=== PATIENT | male | born 1965 | race Caucasian/White ===

== ENCOUNTER 2022-02-10 06:35 | Emergency (ER) | payer BC, SELFPAY ==
--- NOTE | ~2022-02-10 | XR_ITS ---
EXAMINATION: XR knee RT 3V DATE: 02/10/2022 07:08 INDICATION: Right knee injury and pain. TECHNIQUE: 3 views of right knee were obtained. COMPARISON: None. FINDINGS: Bone alignment is normal. No fracture. There is severe osteoarthritis of medial compartment and mild osteoarthritis of lateral and patellofemoral compartments. No knee joint effusion. IMPRESSION: 1. Severe right knee osteoarthritis. Reviewed, dictated and finalized at location A.
[2022-02-10 06:46] VITALS: BP 172/117; PULSE 97; RESP 17; TEMP 36.6; O2SAT 97
[2022-02-10 06:50] VITALS: BP 145/118
--- NOTE | 2022-02-10 07:10 | PC.NURSE ---
Assumed care of pt. at this time. Report from ERLINDA Bonds
[2022-02-10 07:48] VITALS: BP 145/88; PULSE 88; RESP 19; O2SAT 99
--- NOTE | 2022-02-10 08:24 | ED.LOWEXIN ---
HPI - Extremity Injury (Lower) General Chief Complaint: Extremity Injury, Lower Stated Complaint: Right Knee Pain after Fall Yesterday Time Seen by Provider: 02/10/22 06:59 History of Present Illness HPI Narrative: Patient is a 56-year-old male who presents ER with right knee pain. Has history of severe osteoarthritis of the right knee. He sees an orthopedic surgeon in [place]. He reports that yesterday he fell directly onto his right knee. He has had increased pain since then with limitation in his ability to flex knee. He can only get to 90 degrees flexion. He reports that he has no new numbness or tingling. And not strike his head. 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 Related Data Allergies Allergy/AdvReac Type Severity Reaction Status Date / Time oxycodone Allergy Itching Verified 02/10/22 06:51 Review of Systems Constitutional: Constitutional: Denies chills and Denies fever(s) Musculoskeletal: Musculoskeletal: Reports arthralgias and Denies joint swelling Neurologic: Reports system reviewed and no additional complaints, except as documented, Denies focal weakness and Denies numbness PMFSH Past Medical History Medical History (Updated 02/10/22 @ 08:35 by Jesus Sainz MD) Hypertension Hypothyroidism Osteoarthritis, knee Surgical History Surgical History (Updated 02/10/22 @ 08:35 by Jesus Sainz MD) No history of previous surgery Social History Social History (Updated 02/10/22 @ 08:35 by Jesus Sainz MD) Smoking status: Never smoker Exam Narrative: GENERAL: Well-appearing, well-nourished, and in no acute distress. HEAD: Normocephalic, atraumatic. HEART: Regular rate and rhythm. Normal peripheral pulses. EXTREMITIES: Right lower extremity with tenderness of the anterior joint line medial more than lateral with bruising at the medial aspect. Can only flex to 90 degrees for has significant pain. No pain over the patella. Neurovascular intact. SKIN: Warm, dry, no rash. NEURO: Alert and oriented x3. PSYCH: Normal mood and affect. Course Course Emergency Course: Informed of results. Discussed treatment plan. Patient will follow up with his orthopedic surgeon. Vital Signs Vital signs: Vital Signs Temperature 97.9 F 02/10/22 06:46 Pulse Rate 97 02/10/22 06:46 Respiratory Rate 17 02/10/22 06:46 Blood Pressure 172/117 H 02/10/22 06:46 Pulse Oximetry 97 02/10/22 06:46 Oxygen Delivery Room Air 02/10/22 06:46 Temperature 97.9 F 02/10/22 06:46 Pulse Rate 88 02/10/22 07:48 Respiratory Rate 19 02/10/22 07:48 Blood Pressure 145/88 H 02/10/22 07:48 Pulse Oximetry 99 02/10/22 07:48 Oxygen Delivery Room Air 02/10/22 06:46 MDM - Extremity Injury (Lower) Imaging Data Radiologist's impression: ITS Impressions Knee X-Ray 02/10/22 07:11 IMPRESSION: 1. Severe right knee osteoarthritis. Discharge Plan Discharge Clinical Impression: Arthritis of knee, right Patient Disposition: Home, Self-Care Condition: Stable Instructions: Arthritis (ED) Additional Instructions: Return the ER if you have a red/hot knee, you have fever over 100.4 ?F, you have chest pain or shortness of breath, you have additional concerns. Prescriptions: New naproxen 375 mg tablet 375 mg PO BID Qty: 14 0RF tramadol 50 mg tablet 50 mg PO Q6H PRN (Reason: pain) Qty: 14 0RF Follow-up/Referrals: PHYSICIAN NOT ON STAFF,NONSTAFF [Primary Care Provider] - 1 Week Stand Alone Forms: Work/School Release IP
== END 2022-02-10 08:50 | disposition home or self-care (01) ==
PROVIDERS: Emergency Provider Emergency Medicine
DX: M17.11 Unilateral primary osteoarthritis, right knee (principal); I10 Essential (primary) hypertension; E03.9 Hypothyroidism, unspecified
CPT/HCPCS: 73562; 99283

== ENCOUNTER 2022-07-18 09:24 | Emergency (ER) | payer BC, SELFPAY ==
--- NOTE | ~2022-07-18 | XR_ITS ---
EXAMINATION: XR abdomen/kub 1V DATE: 07/18/2022 11:49 INDICATION: Left kidney stone. TECHNIQUE: A supine view of the abdomen on 2 radiographs was obtained. COMPARISON: CT abdomen and pelvis 07/18/2022 FINDINGS: There are no dilated loops of bowel. There is contrast in the renal collecting system. Ther e is mild left hydronephrosis and hydroureter. IMPRESSION: 1. Mild left hydronephrosis and hydroureter. Reviewed, dictated and finalized at location A. IX INSPECTOR
--- NOTE | ~2022-07-18 | CT_ITS ---
EXAMINATION: CT abdomen pelvis w con INDICATION: Left flank pain TECHNIQUE: Computed tomographic images of the abdomen and pelvis were obtained after the administrati on of 100 cc of Omnipaque 350 intravenous contrast. The dose-length product (DLP) was 1555.48 mGy-cm. Automated exposure control and iterative reconstruction technique were employed. COMPARISON: None available FINDINGS: Minimal dependent atelectasis is present in the lung bases. The heart size is normal. Calci fied coronary artery atherosclerosis is noted. Surgical changes of the stomach likely reflect gastric bypass. The liver, spleen, pancreas, gallbladder, and adrenal glands are normal. There is a 2 mm sto ne in the urinary bladder at the left ureterovesicular junction. The left kidney is unremarkable. The re is a 6 mm nonobstructing stone of the right kidney. There is mild periportal lymphadenopathy. Ther e is no free intraperitoneal gas or evidence of bowel obstruction. The appendix is normal. There is a right inguinal hernia containing fat. There is moderate lumbar spondylosis. There are bridging osteo phytes at multiple levels in the visualized thoracic spine, consistent with diffuse idiopathic skelet al hyperostosis (DISH). IMPRESSION: 1. 2 mm stone at the left ureterovesicular junction. 2. Mild periportal lymphadenopathy, likely reactive. 3. Nonobstructing right nephrolithiasis. Reviewed, dictated and finalized at location L. ALT RAKER
[2022-07-18 09:26] VITALS: BP 167/109; PULSE 66; RESP 20; TEMP 36.9; O2SAT 100
--- NOTE | 2022-07-18 09:37 | ED.FALL ---
HPI - Fall General Chief Complaint: Fall Stated Complaint: flank pain s/p fall yesterday Time Seen by Provider: 07/18/22 09:30 History of Present Illness HPI Narrative: Patient is a 56-year-old male with history of gastric sleeve, hypertension, here for evaluation of left flank pain after a fall yesterday. Patient states that he was ambulating in his usual state of health when he tripped over a rug and his cats. He fell, striking his left side against the ground. He denies head injury or loss of consciousness. Since the fall, he has noticed increasing pain to his left flank. He attempted Aleve, an old prescription for muscle relaxant and his 's Xanax yesterday which did not alleviate the pain but did make him sleep all day. States that the pain worsened today which prompted his ED eval. He does not take any blood thinner medicines. No trauma to the chest. No dizziness, lightheadedness, chest pain, shortness of breath, nausea or vomiting. He has been ambulatory without any hip pain. Related Data Allergies Allergy/AdvReac Type Severity Reaction Status Date / Time oxycodone Allergy Itching Verified 07/18/22 09:30 Review of Systems Review of Systems: Gen.: Denies fevers or chills Eyes: Denies eye pain or visual change ENT: Denies congestion Respiratory: Denies shortness of breath or cough CV: Denies chest pain or palpitations GI: Denies abdominal pain nausea, emesis or diarrhea denies burning, urgency, frequency or hematuria Musculoskeletal: Reports left flank pain Neuro: Denies numbness, tingling, weakness or focal weakness Skin: Denies rash Except as documented, all other systems reviewed and negative PMFSH Past Medical History Medical History Hypertension Hypothyroidism Osteoarthritis, knee Surgical History Surgical History No history of previous surgery Social History Social History (Updated 02/10/22 @ 08:35 by Jesus Sainz MD) Smoking status: Never smoker Exam Narrative: APPEARANCE: Obese. Well appearing, no pain in distress, well-nourished. Head: Normocephalic and atraumatic. EYES: PERRLA/EOMI, conjunctivae clear NOSE: No nasal drainage EARS: External ear normal in appearance THROAT: Oropharynx is clear. Mucous membranes are moist. NECK: Supple. No adenopathy, no masses. RESPIRATORY: Airway patent, respirations nonlabored. Clear to auscultation bilaterally, no rales, rhonchi, wheezing. CARDIOVASCULAR: Regular rate and rhythm without murmurs, rubs, or gallops. ABDOMINAL: There is an area of pale ecchymosis overlying the left flank that is tender to palpation. He does have some midline tenderness to palpation of L4/L5. Normoactive bowel sounds. Soft, nontender, nondistended. No rebound tenderness or guarding. MUSCULOSKELETAL: Extremities are warm and well-perfused. Moves all extremities well. No edema. NEURO: Ambulatory with a normal gait. Normal speech. No focal neurologic deficits. SKIN: There is a pale area of ecchymosis overlying his left flank. No rashes to flank. PSYCHIATRIC: Normal affect/mood. Course Vital Signs Vital signs: Vital Signs Temperature 98.4 F 07/18/22 09:26 Pulse Rate 66 07/18/22 09:26 Respiratory Rate 20 07/18/22 09:26 Blood Pressure 167/109 H 07/18/22 09:26 Pulse Oximetry 100 07/18/22 09:26 Oxygen Delivery Room Air 07/18/22 09:26 Temperature 98.4 F 07/18/22 09:26 Pulse Rate 84 07/18/22 12:02 Respiratory Rate 18 07/18/22 12:02 Blood Pressure 139/99 H 07/18/22 12:02 Pulse Oximetry 99 07/18/22 12:02 Oxygen Delivery Room Air 07/18/22 09:26 MDM - Fall MDM Narrative Medical decision making narrative: 56-year-old male here for evaluation of left flank pain after a fall yesterday. Initial concern was over retroperitoneal hematoma given slight bruising over the left flank but noted to have evide
[2022-07-18 10:05] LABS: Basophils Absolute Auto 0.1 K/mm3 (0.0-0.1); Basophils Percent Auto 0.9 % (0.2-1.2); Eosinophils Absolute Auto 0.2 K/mm3 (0-0.3); Eosinophils Percent Auto 1.9 % (0-4.4); Hematocrit 46.2 % (42.0-52.0); Hemoglobin 13.7 g/dL (14.0-18.0); Immature Granulocyte Absolute 0.03 K/mm3 (0.00-0.031); Immature Granulocyte Percent A 0.3 % (0-0.5); Lymphocytes Absolute Auto 1.61 K/mm3 (0.9-3.2); Lymphocytes Percent Auto 17.8 % (18.3-44.2); Mean Corpuscular HGB Conc 29.7 g/dl (32-36); Mean Corpuscular Hemoglobin 21.3 pg (26-34); Mean Platelet Volume 10.4 fl (7.4-10.4); Monocytes Absolute Auto 0.7 K/mm3 (0.1-0.6); Monocytes Percent Auto 7.5 % (2.6-8.5); Neutrophils Absolute Auto 6.5 K/mm3 (1.3-6.7); Neutrophils Percent Auto 71.6 % (45.5-73.1); Platelet Count Result 295 k/mm3 (150-375); Red Blood Count 6.42 M/mm3 (4.6-6.20); Red Cell Distribution Width 18.4 % (11.5-14.5)
[2022-07-18 10:17] LABS: INR 1.1; Prothrombin Time 13.3 Seconds (11.1-14.7)
[2022-07-18 10:18] LABS: Partial Thromboplastin Time 31.6 SECONDS (22.3-36.8)
[2022-07-18 10:20] LABS: Alanine Aminotransferase 33 U/L (6-50); Albumin Level 4.1 g/dL (3.5-5.1); Alkaline Phosphatase 99 U/L (38-126); Anion Gap 9 mmol/L (8-16); Aspartate Amino Transferase 29 U/L (17-59); Bilirubin,Total 0.7 mg/dL (0.2-1.3); Blood Urea Nitrogen 15 mg/dL (9-20); Calcium 8.2 mg/dL (8.4-10.2); Carbon Dioxide 26 mmol/L (22-30); Chloride 102 mmol/L (98-107); Estimated CRCL calculation 121 ml/min; Estimated Glomerular Filt Rate > 60; Glucose 152 mg/dL (65-110); Potassium 3.7 mmol/L (3.4-5.0); Sodium 137 mmol/L (137-145)
[2022-07-18 10:24] LABS: Ovalocytes 1+ (NORMAL); Platelet Estimate Adequate (Adequate); Schistocytes None Seen (NORMAL)
[2022-07-18] MEDS: ONDANSETRON INJ 4 MG/2 ML VIAL IV PUSH (10:44)
--- NOTE | 2022-07-18 11:19 | PC.NURSE ---
Report recieved from Faye COFFEY at this time including history and physical and plan of care
[2022-07-18 11:20] LABS: Appearance Urine Clear (Clear); Bilirubin Urine Negative (Negative); Blood Urine Negative (Negative); Color Urine Yellow (Yellow); Glucose Urine UA Negative (Negative); Ketones Urine Negative (Negative); Leukocyte Esterase Ur Negative LEU/UL (Negative); Nitrate Urine Negative (Negative); Protein Urine Negative (Negative); Specific Grav Ur 1.015 (1.001-1.035); Urobilinogen Urine 0.2 mg/dL (<2.0); pH Urine 7.5 (5.0-9.0)
[2022-07-18 11:21] LABS: Add Urine Microscopic? NO
[2022-07-18 12:02] VITALS: BP 139/99; PULSE 84; RESP 18; O2SAT 99
== END 2022-07-18 13:50 | disposition home or self-care (01) ==
PROVIDERS: Emergency Provider Physician Assistant
DX: N20.2 Calculus of kidney with calculus of ureter (principal); I10 Essential (primary) hypertension; E03.9 Hypothyroidism, unspecified; M17.9 Osteoarthritis of knee, unspecified; Z98.84 Bariatric surgery status
CPT/HCPCS: 36415; 74018; 74177; 80053; 81003; 85025; 85610; 85730; 96365; 96375; 99284; J0131; J2405; Q9967

== ENCOUNTER 2022-10-09 02:24 | Emergency (ER) | payer BC, SELFPAY ==
[2022-10-09] VITALS (11 sets, daily range): BP systolic 138–146; BP diastolic 94–99; PULSE 60–72; RESP 11–24; TEMP 36.6; O2SAT 96–100
--- NOTE | ~2022-10-09 | CT_ITS ---
EXAMINATION: CT abdomen pelvis wo con DATE: 10/09/2022 03:08 INDICATION: Right flank pain. TECHNIQUE: Computed tomography (CT) of the abdomen and pelvis was performed without intravenous contr ast. Automated exposure control and iterative reconstruction technique were employed. The dose-length product was 1051.84 mGy-cm. COMPARISON: CT abdomen and pelvis 07/18/2022 FINDINGS: The visualized portions of the lung bases demonstrate minimal atelectasis on the left. A ca lcified right lung nodules consistent with old granulomatous disease. No pleural effusion. The heart size is normal. There are coronary artery calcifications. No pericardial effusion. There are changes of gastric sleeve procedure. The liver, gallbladder, spleen, pancreas, adrenal glands, and left kidne y are normal. There is mild right hydronephrosis. There is a 6 mm stone in proximal right ureter. The re is a right inguinal hernia containing fat. There is diverticulosis of the colon without evidence o f diverticulitis. The appendix is normal. There are no dilated loops of bowel. There is mild periport al lymphadenopathy, likely reactive. There is no free intraperitoneal fluid. There is severe lumbar s pondylosis. IMPRESSION: 1. 6 mm stone in proximal right ureter with mild right hydronephrosis. 2. Right inguinal hernia containing fat. 3. Mild periportal lymphadenopathy, likely reactive. Reviewed, dictated and finalized at location A.
[2022-10-09 02:59] LABS: Basophils Absolute Auto 0.1 K/mm3 (0.0-0.1); Basophils Percent Auto 0.5 % (0.2-1.2); Eosinophils Absolute Auto 0.1 K/mm3 (0-0.3); Hematocrit 48.9 % (42.0-52.0); Hemoglobin 15.1 g/dL (14.0-18.0); Immature Granulocyte Absolute 0.03 K/mm3 (0.00-0.031); Immature Granulocyte Percent A 0.3 % (0-0.5); Lymphocytes Absolute Auto 1.65 K/mm3 (0.9-3.2); Lymphocytes Percent Auto 15.1 % (18.3-44.2); Mean Corpuscular HGB Conc 30.9 g/dl (32-36); Mean Corpuscular Hemoglobin 23.2 pg (26-34); Mean Corpuscular Volume 75.2 fl (80-100); Mean Platelet Volume 10.4 fl (7.4-10.4); Monocytes Absolute Auto 0.9 K/mm3 (0.1-0.6); Monocytes Percent Auto 8.2 % (2.6-8.5); Neutrophils Absolute Auto 8.2 K/mm3 (1.3-6.7); Neutrophils Percent Auto 74.9 % (45.5-73.1); Platelet Count Result 283 k/mm3 (150-375); Red Cell Distribution Width 19.1 % (11.5-14.5)
[2022-10-09 03:45] LABS: Alanine Aminotransferase 41 U/L (6-50); Albumin Level 4.1 g/dL (3.5-5.1); Alkaline Phosphatase 66 U/L (38-126); Anion Gap 7 mmol/L (8-16); Aspartate Amino Transferase 46 U/L (17-59); Blood Urea Nitrogen 15 mg/dL (9-20); Calcium 8.2 mg/dL (8.4-10.2); Carbon Dioxide 28 mmol/L (22-30); Chloride 100 mmol/L (98-107); Estimated CRCL calculation 100 ml/min; Estimated Glomerular Filt Rate > 60; Glucose 108 mg/dL (65-110); Potassium 4.8 mmol/L (3.4-5.0); Sodium 135 mmol/L (137-145)
[2022-10-09 04:22] LABS: Appearance Urine Cloudy (Clear); Bacteria Urine 4+ /hpf; Bilirubin Urine Negative (Negative); Blood Urine 1+ (Negative); Color Urine Yellow (Yellow); Glucose Urine UA Negative (Negative); Ketones Urine 1+ mg/dL (Negative); Leukocyte Esterase Ur 1+ LEU/UL (Negative); Nitrate Urine Negative (Negative); Non Pathogenic Casts 0-2; Protein Urine Negative (Negative); RBC Urine 21-50 /hpf (0-2); Squamous Epithelial Cell Urine Occasional /hpf (Few); pH Urine 6.5 (5.0-9.0)
--- NOTE | 2022-10-09 04:23 | ED.GENADULT ---
HPI - General Adult General Chief complaint: Urogenital-Male Stated complaint: right flank pain, hx of kidney stones Time Seen by Provider: 10/09/22 02:44 History of Present Illness HPI narrative: this is a 57-year-old gentleman with history of kidney stones presenting ED with the chief complaint of right flank pain. Pain started yesterday around 2:00 a.m.. Sharp pain in his right flank. Is nonradiating, 5 out 10 intensity and comes and goes. It feels exactly like when he had kidney stones 2 months ago. There are no exacerbating alleviating factors. He has had some nausea but no vomiting. No fever chills or urinary symptoms. Related Data Allergies Allergy/AdvReac Type Severity Reaction Status Date / Time oxycodone Allergy Itching Verified 10/09/22 02:36 [facility] Past Medical History Medical History Hypertension Hypothyroidism Osteoarthritis, knee Surgical History Surgical History No history of previous surgery Social History Social History (Updated 02/10/22 @ 08:35 by Jesus Sainz MD) Smoking status: Never smoker Exam Narrative: APPEARANCE: No apparent distress. Head: atraumatic. EYES: EOMI, NOSE: Atraumatic NECK: Trachea midline RESPIRATORY: No increased rate of breathing CARDIOVASCULAR: RRR, ABDOMINAL: Soft nontender no guarding or rebound. No CVA tenderness MUSCULOSKELETAl: No obvious deformities NEURO: Alert. Moving 4/4 extremities SKIN:: Warm, dry. Normal color PSYCHIATRIC: Normal affect Course Vital Signs Vital signs: Vital Signs Temperature 97.8 F 10/09/22 02:27 Pulse Rate 71 10/09/22 02:27 Respiratory Rate 16 10/09/22 02:27 Blood Pressure 146/99 H 10/09/22 02:27 Pulse Oximetry 100 10/09/22 02:27 Oxygen Delivery Room Air 10/09/22 02:27 Temperature 97.8 F 10/09/22 02:27 Pulse Rate 68 10/09/22 03:45 Respiratory Rate 24 H 10/09/22 03:45 Blood Pressure 138/94 H 10/09/22 02:48 Pulse Oximetry 96 10/09/22 03:45 Oxygen Delivery Room Air 04/24/23 02:[address] [facility] Narrative Medical decision making narrative: -Presentation: 57-year-old history of kidney stones presenting with right flank pain. 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 Metabolic panel within normal limits. CT abdomen pelvis showed a 6 mm stone in the UPJ and mild right hydronephrosis. UA showed 11-20 white blood cells, +4 bacteria and +1 leuk esterase. Patient is afebrile. White blood cell count is 11.0. Patient will be given a dose of ceftriaxone and a prescription for Omnicef. Dx tests considered but not ordered: -Procedures: -Interventions: 1 g ceftriaxone -Shared decision making / Disposition: patient will be discharged with symptomatic treatment and antibiotics given Urology follow-up. -RX Motrin, Tylenol, [place], Flomax, Zofran, Omnicef Vital Signs Vital Signs: Vital Signs Temperature 97.8 F 10/09/22 02:27 Pulse Rate 71 10/09/22 02:27 Respiratory Rate 16 10/09/22 02:27 Blood Pressure 146/99 H 10/09/22 02:27 Pulse Oximetry 100 10/09/22 02:27 Oxygen Delivery Room Air 10/09/22 02:27 Temperature 97.8 F 10/09/22 02:27 Pulse Rate 68 10/09/22 03:45 Respiratory Rate 24 H 10/09/22 03:45 Blood Pressure 138/94 H 10/09/22 02:48 Pulse Oximetry 96 10/09/22 03:45 Oxygen Delivery Room Air 10/09/22 02:27 Lab Data 10/09/22 02:47 10/09/22 03:30 Labs: Lab Resu
[2022-10-09 04:36] LABS: Add Urine Microscopic? YES
== END 2022-10-09 05:47 | disposition home or self-care (01) ==
PROVIDERS: Emergency Provider Emergency Medicine
DX: N20.0 Calculus of kidney (principal); N39.0 Urinary tract infection, site not specified; I10 Essential (primary) hypertension; E03.9 Hypothyroidism, unspecified; M17.10 Unilateral primary osteoarthritis, unspecified knee
CPT/HCPCS: 36415; 74176; 80053; 81001; 85025; 87086; 96365; 99284; J0696

== ENCOUNTER 2022-10-11 14:09 | Outpatient (CLI) | payer BC, SELFPAY ==
--- NOTE | ~2022-10-11 | XR_ITS ---
EXAM: XR abdomen/kub 1V DATE: 10/11/2022 14:23 HISTORY: RIGHT URETERAL STONE . COMPARISON: 07/18/2022; CT abdomen and pelvis 10/09/2022. FINDINGS: Surgical suture line in the left upper quadrant. Clear lung bases. Normal bowel gas pattern . No organomegaly. 7 mm calcification projecting over the right L4 transverse process. Pelvic phlebol iths. Regional bones and soft tissues normal for age. IMPRESSION: 7 mm stone in the proximal right ureter. Reviewed, dictated and finalized at location K.
== END 2022-10-11 14:10 | disposition home or self-care (01) ==
LOC: ANHIMG 14:15
DX: N20.1 Calculus of ureter (principal)
CPT/HCPCS: 74018

== ENCOUNTER 2022-10-13 00:41 | Day surgery (SDC) | payer BC, SELFPAY ==
[2022-10-12 12:15] VITALS: BMI 39.1
--- NOTE | 2022-10-12 12:23 | PC.NURSE ---
Addendum entered by Ronel Mcginnis RN 10/12/22 12:27: PT ALSO TO TAKE ANTIBIOTIC MORNING OF SURGERY Original Note: Report to the Outpatient Waiting Room, entrance under the green pavilion located off [facility], at time 0830 on date 10/13/22. Planned Procedure Time: 1030. Time changes happen often and if your time is changed the preop area will call you the afternoon before. - You and your visitor will be asked to self-screen and do not enter if you have any COVID symptoms. - A mask is optional within the hospital at this time. Patients may have clear liquids (water, carbonated beverages, clear teas, apple juice) until 3 hours prior to surgery with a maximum of 20 ounces. - No food from midnight until time of surgery Take the following medications with a SIP of water the morning of surgery: LEVOTHYROXINE, AMLODIPINE, PAIN PILL IF NEEDED DO NOT STOP ANY OF YOUR OTHER PRESCRIPTION MEDICATIONS PRIOR TO SURGERY?EXCEPT THE FOLLOWING Medications to discontinue per physician: VITAMINS, SUPPLEMENTS, NSAIDS Date to take last dose: NO MORE UNTIL AFTER SURGERY Please no make-up, nail burkinan, hairspray, perfume, deodorant, or body powder the day of surgery. No jewelry (including any body piercings) or valuables the day of surgery, leave them at home. Please take a shower or bath the night before, or the morning of, surgery with an antibacterial soap. Wear comfortable, loose fitting clothing. - Jewelry must be removed prior to entering the operating room. Rings and piercings that are not removed may be cut off. - The hospital will not accept responsibility for valuables. - Please leave all valuables, including medications, at home the day of surgery. If you are going home after surgery, a licensed p d driver must drive you home. - NO public transportation without another adult if you receive anesthesia. - We recommend that an adult stay with you for 24 hours following discharge. - We also recommend that you do not drive, make important decision, drink alcoholic beverages, or take any drugs that were not prescribed by your health care provider for at least 24 hours after your discharge time. Follow any additional instructions given to you from your surgeon. If you or anyone in your household have experienced Covid symptoms in the past week, please notify your surgeon or the nurse liaison at the phone number below for possible testing. Telephone instructions given to PT - SIMBA CROOKS and asked if any additional questions and then verbalized understanding. Patient advised to call surgeon office or pre surgery nurse liaison [phone] if any additional questions.
[2022-10-13] VITALS (8 sets, daily range): BP systolic 130–139; BP diastolic 79–90; PULSE 64–80; RESP 14–27; TEMP 36.2–36.4; O2SAT 91–99
--- NOTE | ~2022-10-13 | XR_ITS ---
Supine and upright views of the abdomen Clinical history: Lithotripsy COMPARISON: 10/11/2022 Findings: Bowel gas pattern is nonspecific. No evidence for obstruction or free air. Possible migrati on of right-sided ureteral stone to the mid right ureter. Osseous structures are intact. Impression: Suspected migration of right-sided ureteral stone into the mid right ureter, superimposed upon the ri ght L4 transverse process. Reviewed, dictated and finalized at location M. Impression: Suspected migration of right-sided ureteral stone into the mid right ureter, ho perimposed upon the right L4 transverse process.
--- NOTE | 2022-10-13 06:24 | ECG_ITS ---
Measurements Intervals [place] Rate: 86 P: 39 WA: 112 QRS: -18 QRSD: 86 T: 51 QT: 381 QTc: 458 Interpretive Statements SINUS RHYTHM WITH SHORT WA INTERVAL WITH FREQUENT PACS NONSPECIFIC T-WAVE ABNORMALITY ABNORMAL RHYTHM ECG NO PREVIOUS ECG AVAILABLE FOR COMPARISON Electronically Signed On 10-13-2022 11:04:44 CDT by Moreno Abel M.D.
--- NOTE | 2022-10-13 09:05 | WPDHPUPDATE1 ---
History and Physical Update Update Date/Time: 10/13/22 09:05 History and Physical has been reviewed, including an updated exam of the patient. There are NO changes in the patient's condition. Risks, benefits, and alternatives have been discussed and questions answered. Patient agrees to proceed with procedure. Proceed with ESWL of right ureteral calculus possible cysto, ureteroscopy with laser, stone extraction, stent placement
[2022-10-13] MEDS: LACTATED RINGERS 1,000 ML 30 ML IV CONT ×2 (09:45→11:32)
[2022-10-13] MEDS: ONDANSETRON INJ 4 MG/2 ML VIAL IV PUSH (09:58)
--- NOTE | 2022-10-13 10:01 | WPDANESEPPF ---
Anes - Initial Pre Proc Eval Procedure: Operation Date: 10/13/22 10:30 Proposed Procedures p Right Extracorporeal Shock Wave Lithotripsy, - Kalen Quintana MD s Possible Cystoscopy, Right Ureteroscopy, Right Retrograde Pyelogram, Right Stone Extraction, Right Stent Placement, Possible Holmium Laser Procedure - Kalen Quintana MD Date/Time: 10/13/22 10:01 Surgeon: Kalen Quintana MD Pre Op Diagnosis: right ureteral stones Patient Data Age: 57 Gender: M Height: 1.8 m Weight: 121.4 kg Last Vital Signs Temp 36.2 C L 10/13/22 08:58 Pulse 80 10/13/22 08:58 Resp 20 10/13/22 08:58 BP 133/81 10/13/22 08:58 Pulse Ox 99 10/13/22 08:58 O2 Del Method Room Air 10/13/22 08:58 Allergies Allergy/AdvReac Type Severity Reaction Status Date / Time No Known Allergies Allergy Verified 10/12/22 12:14 Home Medications Medication Instructions Recorded Confirmed Type tramadol 50 mg tablet 50 mg PO Q6H PRN pain #14 tabs 02/10/22 10/13/22 Rx cefdinir 300 mg capsule 300 mg PO Q12H #14 caps 10/09/22 10/13/22 Rx hydrocodone 7.5 mg-acetaminophen 1 tablet PO Q6H PRN pain #14 tabs 10/09/22 10/13/22 Rx 325 mg tablet ibuprofen 800 mg tablet 800 mg PO TID PRN pain 7 days #21 10/09/22 10/13/22 Rx tabs ondansetron 4 mg disintegrating 4 mg PO Q8H PRN nausea and 10/09/22 10/13/22 Rx tablet vomiting #30 tabs tamsulosin 0.4 mg capsule (Flomax) 0.4 mg PO HS #14 caps 10/09/22 10/13/22 Rx acetaminophen 500 mg tablet 1,000 mg PO TID PRN Pain 10/12/22 10/13/22 History amlodipine 10 mg tablet 10 mg PO DAILY 10/12/22 10/13/22 History baclofen 10 mg tablet 10 mg PO DAILY PRN Pain 10/12/22 10/13/22 History ferrous sulfate 325 mg (65 mg 325 mg PO DAILY 10/12/22 10/13/22 History iron) tablet (Iron (ferrous sulfate)) hydrochlorothiazide 12.5 mg tablet 12.5 mg PO DAILY 10/12/22 10/13/22 History levothyroxine 125 mcg tablet 125 mcg PO DAILY 10/12/22 10/13/22 History meloxicam 15 mg tablet 15 mg PO DAILY PRN Pain 10/12/22 10/13/22 History multivitamin 1 tablet PO DAILY 10/12/22 10/13/22 History pantoprazole 40 mg tablet,delayed 40 mg PO QAM 10/12/22 10/13/22 History release semaglutide 1 mg/dose (2 mg/1.5 1 mg subcut WEEKLY 10/12/22 10/13/22 History mL) subcutaneous pen injector (Ozempic) Laboratory Tests 10/13/22 09:48 PT Pending INR Pending APTT Pending Sodium Pending Potassium Pending Chloride Pending Carbon Dioxide Pending Anion Gap Pending BUN Pending Creatinine Pending Estim Creat Clear Calc Pending Estimated GFR Pending Glucose Pending Calcium Pending Patient hx anesthesia problems: post op nausea/vomiting Family hx anesthesia problems: none Results Review: All pre-operative results and documents have been reviewed as part of the pre-operative evaluation. [facility] Past Medical History Medical History Hypertension Hypothyroidism Osteoarthritis, knee Surgical History Surgical History No history of previous surgery Social History Social History Smoking status: Never smoker Alcohol intake: never Substance use: never Substance use type: does not use Living arrangements: with family Spiritual care concerns: No Anes - Eval Final PreProcedure Day of Procedure 10/13/22 10:01 Patient weight: obese Heart: regular rate and rhythm Lungs: clear to auscultation Airway: Mallampati scale class II Neurological: alert and oriented Last oral intake: >/= 8 hours Emergent: no Anesthetic plan: proceed Anesthesia type and monitoring: general LMA and standard monitoring Results Review: All pre-operative results and documents have been reviewed as part of the pre-operative evaluation. Informed Cons
[2022-10-13 10:04] LABS: Anion Gap 6 mmol/L (8-16); Blood Urea Nitrogen 21 mg/dL (9-20); Calcium 8.5 mg/dL (8.4-10.2); Carbon Dioxide 32 mmol/L (22-30); Chloride 98 mmol/L (98-107); Estimated CRCL calculation 71 ml/min; Estimated Glomerular Filt Rate 53; Glucose 98 mg/dL (65-110); Potassium 4.1 mmol/L (3.4-5.0); Sodium 136 mmol/L (137-145)
[2022-10-13] MEDS: SCOPOLAMINE 1.5 MG PATCH TRANSDERM (10:06)
[2022-10-13 10:13] LABS: Prothrombin Time 13.2 Seconds (11.1-14.7)
[2022-10-13 10:14] LABS: Partial Thromboplastin Time 31.6 SECONDS (22.3-36.8)
[2022-10-13] MEDS: ceFAZolin 2 GM/D5W 50 ML 2 GM/50 ML BAG IVPB (10:32)
[2022-10-13] MEDS: ceFAZolin SODIUM 1 GM VIAL IV PUSH (10:32)
--- NOTE | 2022-10-13 11:21 | P.OP_ITS ---
Procedure Note - Detailed Date of Procedure 10/13/22 Pre-op Diagnosis right ureteral stones Post-op Diagnosis Same Procedure Performed Lithotripsy of right ureteral calculus Surgeon Kalen Quintana MD Anesthesia General Description of Procedure Patient was taken to the operative suite correctly identified. Once anesthesia was obtained the stone was localized in both planes. Three thousand shocks were given the stone. This somewhat difficult to tell the amount of fragmentation possibly due to edema around the stone. Nonetheless he tolerated procedure well without complications taken recovery stable condition. He will follow-up in 7- 10 days with KUB. This completes dictation on Jt Rowley. please send a copy to my office Drains No Packing No Pathology None sent Complications No immediate complications Condition Stable Disposition PACU
--- NOTE | 2022-10-13 11:59 | SUR.PHASEI ---
1156: Simple mask removed.
[2022-10-13] MEDS: diphenhydrAMINE HCl INJ 50 MG/ML VIAL 25 MG IV PUSH (12:39)
--- NOTE | 2022-10-13 13:53 | SUR.PHASEII ---
DR REYES CLARIFIED FOR PATIENT TO FINISH CEFDINIR AND NOT TO TAKE THE BACTRIM THAT WAS PRESCRIBED. PATIENT NOTIFIED.
== END 2022-10-13 13:55 | disposition home or self-care (01) ==
PROVIDERS: Anesthesiology; Visit Provider Urology
PROC: (CPT 50590; principal; 2022-10-13 10:30)
DX: N20.1 Calculus of ureter (principal); I10 Essential (primary) hypertension; E03.9 Hypothyroidism, unspecified; E66.9 Obesity, unspecified; Z68.37 Body mass index [BMI] 37.0-37.9, adult
CPT/HCPCS: 50590; 36415; 74018; 80048; 85610; 85730; 93005; A9270; J0131; J0330; J0690; J1100; J1200; J2250; J2405; J2704; J3010; J7120

== ENCOUNTER 2022-10-20 11:27 | Outpatient (CLI) | payer BC, SELFPAY ==
--- NOTE | ~2022-10-20 | XR_ITS ---
EXAMINATION: XR abdomen/kub 1V DATE: 10/20/2022 11:45 INDICATION: Right ureteral stone. TECHNIQUE: A supine view of the abdomen on 2 radiographs was obtained. COMPARISON: CT abdomen and pelvis 10/20/2022 FINDINGS: There are no dilated loops of bowel. There are phleboliths in the pelvis. There is a 9 x 6 mm stone in right ureter at L4-L5. IMPRESSION: 1. 9 x 6 mm stone in right ureter at L4-L5. Reviewed, dictated and finalized at location A.
--- NOTE | ~2022-10-20 | CT_ITS ---
Non-contrast CT scan of the Abdomen and Pelvis Clinical indication: Right ureteral stone Technique: 2.5 mm axial scans were obtained through the abdomen and pelvis without intravenous or or al contrast. Dose reduction technique was used on this scan by utilizing automated exposure control a nd iterative reconstruction technique. The dose-length product (DLP) was 938.88 mGy-cm. COMPARISON: 10/09/2022 Findings: Images through the lung bases reveal linear scarring at the lingula. 5 mm right ureteral stone has migrated mildly to the mid ureter (axial image 117), with minimal right hydronephrosis. No left renal or left ureteral stone. The liver, spleen, pancreas, gallbladder, and adrenals appear normal. There is no aortic aneurysm. There is no evidence of bowel obstruction. Normal appendix. Images through the pelvis were performed. There is no evidence of ascites or lymphadenopathy. Urinary bladder unremarkable. Small fat-containing right inguinal hernia present. Prostate gland and seminal vesicles are unremarkable. Impression: Migration of 5 mm right ureteral stone to the mid right ureter, as detailed above. Minimal right hydr onephrosis. Small fat-containing right inguinal hernia. Reviewed, dictated and finalized at location . Impression: Migration of 5 mm right ureteral stone to the mid right ureter, as detailed abo ve. Minimal right hydronephrosis. Small fat-containing right inguinal hernia.
== END 2022-10-20 11:28 | disposition home or self-care (01) ==
PROVIDERS: Visit Provider Urology
DX: N20.1 Calculus of ureter (principal); K40.90 Unilateral inguinal hernia, without obstruction or gangrene, not specified as recurrent
CPT/HCPCS: 74018; 74176

== ENCOUNTER 2022-10-27 00:44 | Day surgery (SDC) | payer BC, SELFPAY ==
[2022-10-23 12:13] VITALS: BMI 38.4
--- NOTE | 2022-10-23 12:15 | PC.NURSE ---
Report to the Outpatient Waiting Room, entrance under the green pavilion located off [facility], at time 1000 on date 10/27/22. Planned Procedure Time: 1200. Time changes happen often and if your time is changed the preop area will call you the afternoon before. - You and your visitor will be asked to self-screen and do not enter if you have any COVID symptoms. - A mask is optional within the hospital at this time. Patients may have clear liquids (water, carbonated beverages, clear teas, apple juice) until 3 hours prior to surgery with a maximum of 20 ounces. - No food from midnight until time of surgery Take the following medications with a SIP of water the morning of surgery: AMLODIPINE, PAIN PILL IF NEEDED DO NOT STOP ANY OF YOUR OTHER PRESCRIPTION MEDICATIONS PRIOR TO SURGERY?EXCEPT THE FOLLOWING Medications to discontinue per physician: VITAMINS Date to take last dose: 10/23/[address] REYES RE: NSAIDS Please no make-up, nail st helen[place], hairspray, perfume, deodorant, or body powder the day of surgery. No jewelry (including any body piercings) or valuables the day of surgery, leave them at home. Please take a shower or bath the night before, or the morning of, surgery with an antibacterial soap. Wear comfortable, loose fitting clothing. - Jewelry must be removed prior to entering the operating room. Rings and piercings that are not removed may be cut off. - The hospital will not accept responsibility for valuables. - Please leave all valuables, including medications, at home the day of surgery. If you are going home after surgery, a licensed mobile lounge driver or operator must drive you home. - NO public transportation without another adult if you receive anesthesia. - We recommend that an adult stay with you for 24 hours following discharge. - We also recommend that you do not drive, make important decision, drink alcoholic beverages, or take any drugs that were not prescribed by your health care provider for at least 24 hours after your discharge time. Follow any additional instructions given to you from your surgeon. If you or anyone in your household have experienced Covid symptoms in the past week, please notify your surgeon or the nurse liaison at the phone number below for possible testing. Telephone instructions given to PT - SIMBA CROOKS and asked if any additional questions and then verbalized understanding. Patient advised to call surgeon office or pre surgery nurse liaison [phone] if any additional questions.
[2022-10-27] VITALS (8 sets, daily range): BP systolic 109–161; BP diastolic 66–88; PULSE 57–66; RESP 10–21; TEMP 36.2–36.6; O2SAT 95–99
--- NOTE | ~2022-10-27 | XR_ITS ---
EXAMINATION: XR retrograde pyelo w/stent RT DATE: 10/27/2022 12:11 INDICATION: Right internal ureteral stent placement TECHNIQUE: Fluoroscopic images from a right internal ureteral stent placement are submitted for kellie rojo 16 seconds of fluoroscopy time. FINDINGS: There is a right double-J internal ureteral stent projecting in expected position, with proximal [place] loop at the level of the renal pelvis and distal loop in the pelvis within the bladder lumen. IMPRESSION: 1. Right internal ureteral stent placement. Please refer to real-time procedural findings for detai ls. Reviewed, dictated and finalized at location B. IMPRESSION: 1. Right internal ureteral stent placement. Please refer to real-time procedu ral findings for details.
--- NOTE | 2022-10-27 08:57 | WPDHPUPDATE1 ---
History and Physical Update Update Date/Time: 10/27/22 08:57 History and Physical has been reviewed, including an updated exam of the patient. There are NO changes in the patient's condition. Risks, benefits, and alternatives have been discussed and questions answered. Patient agrees to proceed with procedure. Proceed with cystoscopy, right retrograde pyelogram, right ureteroscopy with stone extraction possible laser, stent placement
[2022-10-27] MEDS: LACTATED RINGERS 1,000 ML 30 ML IV CONT ×2 (10:00→13:13)
--- NOTE | 2022-10-27 10:07 | WPDANESEPPF ---
Anes - Initial Pre Proc Eval Procedure: Operation Date: 10/27/22 11:00 Proposed Procedures p Cystoscopy, Right Ureteroscopy, Right Stone Extraction, Right Retrograde Pyelogram, Right Stent Placement, Possible Holmium Laser Lithotripsy - Kalen Quintana MD Date/Time: 10/27/22 10:07 Surgeon: Kalen Quintana MD Pre Op Diagnosis: Rt Ureteral Stone Patient Data Age: 57 Gender: M Height: 1.8 m Weight: 125 kg Allergies Allergy/AdvReac Type Severity Reaction Status Date / Time No Known Allergies Allergy Verified 10/23/22 12:13 Home Medications Medication Instructions Recorded Confirmed Type tramadol 50 mg tablet 50 mg PO Q6H PRN pain #14 tabs 02/10/22 10/23/22 Rx hydrocodone 7.5 mg-acetaminophen 1 tablet PO Q6H PRN pain #14 tabs 10/09/22 10/23/22 Rx 325 mg tablet ibuprofen 800 mg tablet 800 mg PO TID PRN pain 7 days #21 10/09/22 10/23/22 Rx tabs ondansetron 4 mg disintegrating 4 mg PO Q8H PRN nausea and 10/09/22 10/23/22 Rx tablet vomiting #30 tabs tamsulosin 0.4 mg capsule (Flomax) 0.4 mg PO HS #14 caps 10/09/22 10/23/22 Rx acetaminophen 500 mg tablet 1,000 mg PO TID PRN Pain 10/12/22 10/23/22 History amlodipine 10 mg tablet 10 mg PO DAILY 10/12/22 10/23/22 History baclofen 10 mg tablet 10 mg PO DAILY PRN Pain 10/12/22 10/23/22 History ferrous sulfate 325 mg (65 mg 325 mg PO DAILY 10/12/22 10/23/22 History iron) tablet (Iron (ferrous sulfate)) hydrochlorothiazide 12.5 mg tablet 12.5 mg PO DAILY 10/12/22 10/23/22 History levothyroxine 125 mcg tablet 125 mcg PO DAILY 10/12/22 10/23/22 History meloxicam 15 mg tablet 15 mg PO DAILY PRN Pain 10/12/22 10/23/22 History multivitamin 1 tablet PO DAILY 10/12/22 10/23/22 History pantoprazole 40 mg tablet,delayed 40 mg PO QAM 10/12/22 10/23/22 History release semaglutide 1 mg/dose (2 mg/1.5 1 mg subcut WEEKLY 10/12/22 10/23/22 History mL) subcutaneous pen injector (Ozempic) Patient hx anesthesia problems: none Family hx anesthesia problems: none Results Review: All pre-operative results and documents have been reviewed as part of the pre-operative evaluation. [facility] Past Medical History Medical History Hypertension Hypothyroidism Osteoarthritis, knee Surgical History Surgical History (Updated 10/27/22 @ 10:08 by Carlos Lima MD) Hx of cystoscopy Social History Social History Smoking status: Never smoker Alcohol intake: never Substance use: never Substance use type: does not use Living arrangements: with family Spiritual care concerns: No Anes - Eval Final PreProcedure Day of Procedure 10/27/22 10:07 Patient weight: obese Heart: regular rate and rhythm Lungs: clear to auscultation Airway: Mallampati scale class II Neurological: alert and oriented Last oral intake: >/= 8 hours ASA classification: III Emergent: no Anesthetic plan: proceed Anesthesia type and monitoring: general LMA and standard monitoring Results Review: All pre-operative results and documents have been reviewed as part of the pre-operative evaluation. Informed Consent: The patient's anesthetic plan and its attendant risks and benefits were discussed with the patient/family/POA. Questions were solicited and answers provided to the satisfaction of the patient/family/POA.
[2022-10-27] MEDS: ceFAZolin 1 GM/NS 50 ML 1 GM/50 ML BAG IVPB (11:11)
[2022-10-27] MEDS: ceFAZolin 2 GM/D5W 50 ML 2 GM/50 ML BAG IVPB (11:11)
[2022-10-27] MEDS: LIDOCAINE HCL 2% GEL UROJET 10 ML PKG MUCOUS MEM (11:48)
--- NOTE | 2022-10-27 11:50 | W.PM.PROC2 ---
Procedure Note - Detailed Date of Procedure 10/27/22 Pre-op Diagnosis Rt Ureteral Stone Post-op Diagnosis Same Procedure Performed Cystoscopy, right retrograde pyelogram, right ureteroscopy with holmium laser, right ureteral stone extraction, right ureteral stent placement 4.8 [place] contour Surgeon Kalen Quintana MD Anesthesia General Description of Procedure Patient is taken to the operative suite correctly identified. Once anesthesia was obtained was placed in dorsal lithotomy position and prepped and draped usual sterile fashion. Nineteen [place] scope was inserted the bladder. There is no tumors noted. The right ureteral orifice was cannulated with a guidewire. Ureteral access sheath was placed. Mini flexible ureteral scope was then inserted. The stone was visualized but was too large to retrieve 1 piece. Using a 200 micron fiber we lasered the stone in multiple small pieces. Those were retrieved and sent for analysis. Reinspection revealed no residual ureteral stones. Pyelogram was then performed of the confirm placement of the stent. 4.8 [place] contour stent was then placed with the proximal end coiled in the renal pelvis distal in the bladder. Bladder was drained. 2% viscous lidocaine was inserted into the urethra. Patient is taken recovery stable condition. He will be discharged home and follow-up in approximately 1-2 weeks for stent removal in the office. This complete dictation. Please send a copy this note to my office Estimated Blood Loss 0 Drains Yes Packing No Pathology Yes Complications No immediate complications Condition Stable Disposition PACU
[2022-10-27] MEDS: fentaNYL CITRATE INJ (*CRX) 100 MCG/2 ML VIAL 25 MCG IV PUSH ×2 (12:26→12:35)
[2022-10-27] MEDS: oxyCODONE HCL (*CRX) 5 MG TAB IR PO (13:13)
[2022-10-27] MEDS: ONDANSETRON INJ 4 MG/2 ML VIAL IV PUSH (13:32)
== END 2022-10-27 14:00 | disposition home or self-care (01) ==
PROVIDERS: Visit Provider Urology
PROC: (CPT 52352; principal; 2022-10-27 11:00)
DX: N20.1 Calculus of ureter (principal); I10 Essential (primary) hypertension; E03.9 Hypothyroidism, unspecified; E66.9 Obesity, unspecified; Z68.38 Body mass index [BMI] 38.0-38.9, adult
CPT/HCPCS: 52356; 74420; 82365; 88300; A9270; C1758; C1769; C1894; C2617; J0690; J1100; J2405; J2704; J3010; J7120

== ENCOUNTER 2022-12-04 12:44 | Outpatient (CLI) | payer BC, SELFPAY ==
--- NOTE | ~2022-12-04 | US_ITS ---
US retroperitoneal comp 12/04/2022 13:02 Procedure: Realtime transabdominal ultrasound of the kidneys and bladder. Indication: History of right ureteral stone Comparison: CT dated 10/20/2022 Findings: Renal echotexture is normal bilaterally without hydronephrosis, contour deforming mass or r enal calculus. The right kidney measures 11.2 cm and left kidney measures 11.5 cm. Bladder within no rmal limits. Impression: 1: Unremarkable renal ultrasound. No stones, masses or hydronephrosis. Reviewed, dictated and finalized at location [] Impression: 1: Unremarkable renal ultrasound. No stones, masses or hydronephrosis.
== END 2022-12-04 12:45 ==
LOC: GOSHIMG 12:45
PROVIDERS: PCP Urology; Visit Provider Urology
DX: N20.1 Calculus of ureter (principal)
CPT/HCPCS: 76770

== ENCOUNTER 2023-09-05 14:57 | Emergency (ER) | payer BC, SELFPAY ==
--- NOTE | ~2023-09-05 | US_ITS ---
EXAMINATION: US scrotum doppler DATE: 09/05/2023 16:07 INDICATION: Right testicular pain TECHNIQUE: Testicular sonogram utilizing grayscale and Doppler COMPARISON: None. FINDINGS: The right testis measures 4.7 x 2.9 x 3.3 cm. The left testis measures 4.5 x 2.7 x 3.0 cm. Symmetric normal grayscale appearance to both testes. Single tiny echogenic microlith within the right testis. There is normal symmetric vascular flow to both testes. There appears to be mild scrotal edema along side the right epididymis which appears normal but with prominent asymmetric increased vascular flow to the right epididymis relative to the left consistent with epididymitis. The left epididymis is nor mal with normal vascular flow. Moderate-sized right and small left hydroceles. No varicocele. IMPRESSION: 1. Right epididymitis. Normal bilateral testes and left epididymis. 2. Moderate-sized right and small left hydroceles. Reviewed, dictated and finalized at location A.
[2023-09-05 15:20] VITALS: BP 149/42; PULSE 69; RESP 16; TEMP 36.4; O2SAT 99
--- NOTE | 2023-09-05 15:24 | ED.MALEGU ---
HPI - Male Genitourinary General Chief complaint: Urogenital-Male <Koko Huizar APRN - Last Filed: 09/05/23 15:31> Stated complaint: testicle swelling <Koko Huizar APRN - Last Filed: 09/05/23 15:31> Time Seen by Provider: 09/05/23 15:24 <Koko Huizar APRN - Last Filed: 09/05/23 15:31> Focused HPI: Mr. Rowley is a 58-year-old male patient presenting to the ER today with complaints of right testicle pain/swelling. He reports that the symptoms started yesterday. 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 History kidney stones in the past. He denies any concern for any STIs. States he did have some blood in his urine today. Contacted his primary care provider who is worried about a possibility of a testicular torsion. Patient does see Urology here at [facility]. General: Well-developed, well nourished, in no apparent distress. Head: Normocephalic, atraumatic. Cardio: Regular rate and rhythm, s1 and s2 normal, no murmur appreciated. Resp: Clear to auscultation bilaterally, no rhonchi, rales, wheezing or rubs. Abdomen: Soft, pliable, bowel sounds present in all quadrants, non-tender to palpation, no organomegly, no CVAT tenderness. : Circumcised male without mass or lesions, swelling of the right testicle with discomfort to palpation, testicles approximated twice the size of the left testicle, cremasteric reflex decreased, no obvious inguinal hernia Patient screened in triage and initial orders placed. Additional care and disposition to be based upon diagnostic testing and treatment. <Koko Huizar APRN - Last Filed: 09/05/23 15:31> Source: patient <Koko Huizar APRN - Last Filed: 09/05/23 15:31> Mode of arrival: ambulatory <Koko Huizar APRN - Last Filed: 09/05/23 15:31> Limitations: no limitations <Koko Huizar APRN - Last Filed: 09/05/23 15:31> History of Present Illness HPI Narrative: In addition to HPI above, patient states he has a remote history of epididymitis. States it feels the same as it presented last time. Reports chills, denies fever, nausea or vomiting, abdominal pain or flank pain. Denies dysuria but reports urinary frequency and urgency. States he is sexually active with his . Denies concerns for STDs, penile discharge. Denies anal intercourse. <Miranda Adames PA-C - Last Filed: 09/05/23 18:00> Related Data Home medications: Home Medications Medication Instructions Recorded Confirmed acetaminophen 500 mg tablet 1,000 mg PO TID PRN Pain 10/12/22 10/27/22 amlodipine 10 mg tablet 10 mg PO DAILY 10/12/22 10/27/22 baclofen 10 mg tablet 10 mg PO DAILY PRN Pain 10/12/22 10/27/22 ferrous sulfate 325 mg (65 mg 325 mg PO DAILY 10/12/22 10/27/22 iron) tablet (Iron (ferrous sulfate)) hydrochlorothiazide 12.5 mg tablet 12.5 mg PO DAILY 10/12/22 10/27/22 levothyroxine 125 mcg tablet 125 mcg PO DAILY 10/12/22 10/27/22 meloxicam 15 mg tablet 15 mg PO DAILY PRN Pain 10/12/22 10/27/22 multivitamin 1 tablet PO DAILY 10/12/22 10/27/22 pantoprazole 40 mg tablet,delayed 40 mg PO QAM 10/12/22 10/27/22 release semaglutide 1 mg/dose (2 mg/1.5 1 mg subcut WEEKLY 10/12/22 10/27/22 mL) subcutaneous pen injector (Ozempic) <Koko Huizar APRN - Last Filed: 09/05/23 15:31> Allergies/Adverse reactions: Allergies Allergy/AdvReac Type Severity Reaction Status Date / Time No Known Allergies Allergy Verified 10/27/22 11:14 <Koko Huizar APRN - Last Filed: 09/05/23 15:31> Review of Systems Review of Systems: CONSTITUTIONAL: Denies fever, chills, or sweats. EYES: Denies visual changes, redness, or discharge. ENT: Denies rhinorrhea, congestion, sore throat, or otalgia. CARDIOVASCULAR: Denies chest pain, palpitations, or edema. RESPIRATORY: Denies cough or dyspnea. GASTROINTESTINAL: Denies abdominal pain, nausea, vomiting, or diarrhea. GENITOURINARY: See HPI SKI
[2023-09-05 15:44] LABS: Basophils Absolute Auto 0.1 K/mm3 (0.0-0.1); Basophils Percent Auto 0.5 % (0.2-1.2); Eosinophils Absolute Auto 0.1 K/mm3 (0-0.3); Eosinophils Percent Auto 1.2 % (0-4.4); Hematocrit 53.1 % (42.0-52.0); Hemoglobin 16.7 g/dL (14.0-18.0); Immature Granulocyte Absolute 0.03 K/mm3 (0.00-0.031); Immature Granulocyte Percent A 0.3 % (0-0.5); Lymphocytes Absolute Auto 1.32 K/mm3 (0.9-3.2); Lymphocytes Percent Auto 11.4 % (18.3-44.2); Mean Corpuscular HGB Conc 31.5 g/dl (32-36); Mean Corpuscular Hemoglobin 25.9 pg (26-34); Mean Corpuscular Volume 82.5 fl (80-100); Mean Platelet Volume 10.1 fl (7.4-10.4); Monocytes Absolute Auto 1.1 K/mm3 (0.1-0.6); Monocytes Percent Auto 9.6 % (2.6-8.5); Platelet Count Result 292 k/mm3 (150-375); Red Blood Count 6.44 M/mm3 (4.6-6.20); Red Cell Distribution Width 13.2 % (11.5-14.5); White Blood Count 11.6 K/mm3 (4.5-10.0)
[2023-09-05 15:53] LABS: Appearance Urine Turbid (Clear); Bacteria Urine 4+ /hpf; Bilirubin Urine 1+ (Negative); Blood Urine 2+ (Negative); Color Urine Dark Yellow (Yellow); Glucose Urine UA Negative (Negative); Ketones Urine 1+ mg/dL (Negative); Leukocyte Esterase Ur 3+ LEU/UL (Negative); Nitrate Urine Negative (Negative); Protein Urine 1+ mg/dL (Negative); RBC Urine 21-50 /hpf (0-2); Specific Grav Ur 1.026 (1.001-1.035); Squamous Epithelial Cell Urine Occasional /hpf (Few); WBC Urine >100 /hpf (0-3)
[2023-09-05 15:59] LABS: Alanine Aminotransferase 30 U/L (6-50); Albumin Level 4.5 g/dL (3.5-5.1); Alkaline Phosphatase 83 U/L (38-126); Anion Gap 9 mmol/L (8-16); Aspartate Amino Transferase 29 U/L (17-59); Bilirubin,Total 1.2 mg/dL (0.2-1.3); Blood Urea Nitrogen 14 mg/dL (9-20); Calcium 9.3 mg/dL (8.4-10.2); Carbon Dioxide 31 mmol/L (22-30); Chloride 99 mmol/L (98-107); Estimated CRCL calculation 78 ml/min; Estimated Glomerular Filt Rate > 60; Glucose 83 mg/dL (65-110); Potassium 3.8 mmol/L (3.4-5.0); Sodium 139 mmol/L (137-145)
[2023-09-05 16:04] LABS: Add Urine Microscopic? YES
[2023-09-05 16:44] VITALS: BP 136/96; PULSE 78; RESP 16; O2SAT 99
[2023-09-05 17:25] VITALS: TEMP 36.8
[2023-09-05 17:31] VITALS: BP 144/92; PULSE 90; RESP 16; TEMP 37; O2SAT 98
[2023-09-05] MEDS: levoFLOXacin 500 MG TABLET PO (17:56)
== END 2023-09-05 18:12 | disposition home or self-care (01) ==
PROVIDERS: Nurse Practitioner Family; Emergency Provider Physician Assistant; PCP Urology
DX: N45.1 Epididymitis (principal); N43.3 Hydrocele, unspecified; I10 Essential (primary) hypertension; E03.9 Hypothyroidism, unspecified
CPT/HCPCS: 36415; 76870; 80053; 85025; 87077; 87086; 87088; 87186; 93976; 99284; A9270

== ENCOUNTER 2023-11-24 07:32 | Emergency (ER) | payer BC, SELFPAY ==
--- NOTE | ~2023-11-24 | CT_ITS ---
EXAMINATION: CT lumbar spine wo con DATE: 11/24/2023 08:45 INDICATION: Low back pain radiating down both legs TECHNIQUE: Computed tomography (CT) of the lumbar spine was performed without intravenous contrast. A utomated exposure control and iterative reconstruction technique were employed. Exam dose: 1299.85 m Gy-cm total exam DLP. 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 Moderate degenerative disc disease in the lower thoracic and lumbar spine. There is moderately severe degenerative disc disease at L5-S1. There is associated posterior disc bul ging and spurring. No spondylolisthesis. No spondylolisthesis is noted at the other lumbar levels. No lumbar spine fract ure or bone destruction. Bilateral lateral recess stenosis at L4-5 and L5-S1 with disc bulging and degenerative change of the facets, including particularly prominent hypertrophic facet hypertrophy on the left at L5-S1. 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 Reviewed, dictated and finalized at location A. 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
--- NOTE | ~2023-11-24 | US_ITS ---
US venous doppler [facility] DATE: 11/24/2023 08:40 INDICATION: Ankle swelling TECHNIQUE: Real-time and color flow measuring and Doppler analysis of the veins of both lower extremi ties COMPARISON: None FINDINGS: The greater saphenous veins are patent. There is spontaneous and phasic flow in normal augm entation and color flow signal and normal compression of the deep veins of both lower extremities. IMPRESSION: No evidence of deep venous thrombosis of the lower extremities Reviewed, dictated and finalized at Location A. Reviewed, dictated and finalized at location A.
[2023-11-24 07:34] VITALS: BP 148/88; RESP 16; TEMP 36.3
[2023-11-24 07:42] VITALS: BP 148/88; PULSE 60; RESP 16; TEMP 36.4; O2SAT 98
--- NOTE | 2023-11-24 07:56 | ED.GENADULT ---
HPI - General Adult General Chief complaint: Back Pain/Injury Stated complaint: BACK PAIN X2D Time Seen by Provider: 11/24/23 07:38 History of Present Illness HPI narrative: This is a 58-year-old male presenting ED with multiple complaints. First complaint is back pain. Two days ago the patient had cramping in his thighs. The day after that he developed severe pain in the right paralumbar region it is worse when he lies flat he has been having difficulty sleeping at night. No radiation. It comes in waves and is 9.5 in intensity. He has taken Tylenol and [place] as with minimal relief. He denies any history of IV drug abuse, cancer, fevers trauma bowel or urinary difficulties. Patient's 2nd complaint is ankle swelling patient developing edema of his lower extremities. He also had a 5 lb weight gain. Patient is on amlodipine. 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 He typically walks everyday but stayed on the sofa all day yesterday due to his backpain. Related Data Home Medications Medication Instructions Recorded Confirmed acetaminophen 500 mg tablet 1,000 mg PO TID PRN Pain 10/12/22 10/27/22 amlodipine 10 mg tablet 10 mg PO DAILY 10/12/22 10/27/22 baclofen 10 mg tablet 10 mg PO DAILY PRN Pain 10/12/22 10/27/22 ferrous sulfate 325 mg (65 mg 325 mg PO DAILY 10/12/22 10/27/22 iron) tablet (Iron (ferrous sulfate)) hydrochlorothiazide 12.5 mg tablet 12.5 mg PO DAILY 10/12/22 10/27/22 levothyroxine 125 mcg tablet 125 mcg PO DAILY 10/12/22 10/27/22 meloxicam 15 mg tablet 15 mg PO DAILY PRN Pain 10/12/22 10/27/22 multivitamin 1 tablet PO DAILY 10/12/22 10/27/22 pantoprazole 40 mg tablet,delayed 40 mg PO QAM 10/12/22 10/27/22 release semaglutide 1 mg/dose (2 mg/1.5 1 mg subcut WEEKLY 10/12/22 10/27/22 mL) subcutaneous pen injector (Ozempic) Allergies Allergy/AdvReac Type Severity Reaction Status Date / Time No Known Allergies Allergy Verified 11/24/23 07:33 [facility] Past Medical History Medical History Hypertension Hypothyroidism Osteoarthritis, knee Surgical History Surgical History Hx of cystoscopy Social History Social History Smoking status: Never smoker Alcohol intake: never Substance use: never Substance use type: does not use Living arrangements: with family Gender identity (if verbalized by the patient): Male Sexual Orientation (if Verbalized by the Patient): Straight or Heterosexual Spiritual care concerns: No Exam Narrative: APPEARANCE: No apparent distress. Head: atraumatic. EYES: EOMI, NOSE: Atraumatic NECK: Trachea midline RESPIRATORY: No increased rate of breathing CARDIOVASCULAR: RRR, +1 edema of the foot and ankles bilaterally ABDOMINAL: Non-distended soft nontender MUSCULOSKELETAl: right paralumbar straight leg negative bilateral NEURO: Alert. Moving 4/4 extremities SKIN:: Warm, dry. Normal color PSYCHIATRIC: Normal affect Course Vital Signs Vital signs: Vital Signs Temperature 97.4 F L 11/24/23 07:34 Respiratory Rate 16 11/24/23 07:34 Blood Pressure 148/88 H 11/24/23 07:34 Temperature 97.6 F 11/24/23 07:42 Pulse Rate 60 11/24/23 07:42 Respiratory Rate 16 11/24/23 07:42 Blood Pressure 148/88 H 11/24/23 07:42 Pulse Oximetry 98 11/24/23 07:42 Medical Decision Making [facility] Narrative Medical decision making narrative: -Course: 58-year-old male presenting with multiple complaints including back pain and lower extremity. CT the patient's L-spine showed degenerative changes. He has no neurologic deficits on exam or red flags on history patient's pain improved with symptomatic treatment. He will be discharged home with PCP follow-up. Patient also has lower extremity edema. BNP was normal. No evidence DVT on ultrasound. Likely dependent edema from his de
[2023-11-24] MEDS: ACETAMINOPHEN 500 MG TABLET 1000 MG PO (08:00)
[2023-11-24] MEDS: IBUPROFEN 400 MG TABLET 800 MG PO (08:00)
[2023-11-24] MEDS: methocarbamoL 750 MG TABLET 1500 MG PO (08:00)
[2023-11-24] MEDS: LIDOCAINE 5% PATCH 1 PATCH TRANSDERM (08:01)
[2023-11-24 08:14] LABS: Basophils Absolute Auto 0.1 K/mm3 (0.0-0.1); Basophils Percent Auto 1.3 % (0.2-1.2); Eosinophils Absolute Auto 0.3 K/mm3 (0-0.3); Eosinophils Percent Auto 5.2 % (0-4.4); Hematocrit 48.5 % (42.0-52.0); Hemoglobin 15.6 g/dL (14.0-18.0); Immature Granulocyte Absolute 0.03 K/mm3 (0.00-0.031); Immature Granulocyte Percent A 0.6 % (0-0.5); Mean Corpuscular HGB Conc 32.2 g/dl (32-36); Mean Corpuscular Hemoglobin 26.6 pg (26-34); Mean Corpuscular Volume 82.8 fl (80-100); Mean Platelet Volume 10.6 fl (7.4-10.4); Monocytes Absolute Auto 0.6 K/mm3 (0.1-0.6); Monocytes Percent Auto 10.2 % (2.6-8.5); Neutrophils Absolute Auto 3.2 K/mm3 (1.3-6.7); Neutrophils Percent Auto 58.7 % (45.5-73.1); Platelet Count Result 215 k/mm3 (150-375); Red Blood Count 5.86 M/mm3 (4.6-6.20); White Blood Count 5.4 K/mm3 (4.5-10.0)
[2023-11-24 08:25] LABS: Alanine Aminotransferase 24 U/L (6-50); Alkaline Phosphatase 72 U/L (38-126); Anion Gap 5 mmol/L (4-12); Aspartate Amino Transferase 24 U/L (17-59); Blood Urea Nitrogen 13 mg/dL (9-20); Calcium 8.4 mg/dL (8.4-10.2); Carbon Dioxide 26 mmol/L (22-30); Chloride 107 mmol/L (98-107); Creatine Kinase 77 U/L (55-170); Estimated CRCL calculation 109 ml/min; Estimated Glomerular Filt Rate > 60; Glucose 89 mg/dL (65-110); Potassium 4.1 mmol/L (3.4-5.0); Sodium 138 mmol/L (137-145)
[2023-11-24 08:36] LABS: NT Pro B Type Natriuretic Pept 70 pg/mL (19.9-100)
== END 2023-11-24 10:11 | disposition home or self-care (01) ==
PROVIDERS: Emergency Provider Emergency Medicine
DX: M54.50 Low back pain, unspecified (principal); R60.9 Edema, unspecified; I10 Essential (primary) hypertension; E03.9 Hypothyroidism, unspecified; M19.90 Unspecified osteoarthritis, unspecified site
CPT/HCPCS: 36415; 72131; 80053; 82550; 83880; 85025; 93970; 99284; A9270

== ENCOUNTER 2024-06-19 09:00 | Outpatient (RCR) | payer BC, SELFPAY ==
--- NOTE | 2024-05-22 15:31 | OPREHPOC ---
Outpatient Therapy Plan of Care This is a Multidisciplinary Plan of Care that may contain components documented by all disciplines (PT, OT, and ST.) PT Problem 1 PT Problem #1 Knowledge Deficit PT Goal 1 Goal / Goal Update *indep with HEP Target Visit 8 PT Goal 2 Goal / Goal Update *use correct lifting technique for waist/floor height lifting Target Visit 8 PT Problem 2 PT Problem #2 Pain PT Goal 1 Goal / Goal Update * pt report pain at worst of 2/10 with increased activity level Target Visit 8 PT Goal 2 Goal / Goal Update *pt report with sleeping, awaken 1x/night due to pain in knee Target Visit 8 PT Problem 3 PT Problem #3 Impaired Flexibility PT Goal 1 Goal / Goal Update *improve R knee ROM to improve gait and transfer skills: * active in sitting 0-120' Target Visit 8 PT Problem 4 PT Problem #4 Impaired Functional Mobility PT Goal 1 Goal / Goal Update *up/down 12 steps without hand railing, indep and no hesitation or pause Target Visit 8 PT Goal 2 Goal / Goal Update * pt perform bilateral UE lifting floor/waist height 50# x 3 reps for simulate work task Target Visit 8
--- NOTE | 2024-05-22 15:31 | PTOPEVAL1 ---
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 He has completed [facility] PT. Reports he is continuing to do the HEP and walking outside, increasing his activity level. He has a [employer] membership and told him he could do water exercises there. LE functional scale rating of 50% limitation in activity level. Sleeping is disrupted due to knee pain. 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 With the evaluation: he is ambulating without an assistive device, with decreased weight shift onto R LE and slight flexion of knee; active sitting ROM of knee (-5') to 110; with passive stretch to 115'; decreased single leg standing on R 8 seconds; very motivated and plans to return to work in July. Skilled PT services are indicated for modalities to decrease pain; therapeutic exercises to increase strength and ROM of R knee, with education for HEP and progression of activity. Plan of Care Interventions Electrical Stimulation,Hot Pack/Cold Pack,Manual Therapy,Neuro Re-education,Patient/Caregiver Educati,Therapeutic Activities,Therapeutic Exercise,Other Other Interventions taping PT Services Indicated Yes Treatment Frequency and 1-2x/wk for 8visits Duration These treatments will address the objective and functional deficits as defined above. The patient will be advanced safely and appropriately in order for the patient to progress towards his/her prior level of function. Additional exercises will be introduced and as well as a comprehensive home exercise program upon discharge, if needed, ?to ensure carryover of functional gains achieved in the clinic. This treatment plan has been reviewed and agreement upon by the patient.
--- NOTE | 2024-06-19 09:54 | PTOPDC ---
Assessment and note entered by Kym Huston, PT Assessment Status Discharge ICD-10 Condition Codes (PT) Abnormalities of gait and mobility R26.9,Weakness R53.1,Encounter for other orthopedic aftercare Z47 .89,Aftercare following joint replacement surgery Z47.1 Onset 04-25-24 Subjective Information L big toe nail has split and tender; have been doing the exercises; at home, have been doing everything I usually do; have some challenge with going down the stairs; am going to the chiropractor for back pain later today; Reported Pain Level Pain Score Self Report Additional Pain Score Comments pain range in the past week 0-3/10; medial and lateral patella sore and tender more pain with increased activity; use ice & rest for pain; with sleeping, does not awaken due to knee pain; Assessment PT Clinical Summary Darius has received 8 PT sessions. He reports pain of 0-3/10 in R knee, stiff, tight; Self assessment with LE functional scale rating of 29% limitation in activity level; sleeping is not disrupted due to pain; good strength of R hip and knee; bilateral UE box lifting floor/waist height of 50# x 3 reps to simulate work task, with good technique and no issues with knee; gait with slight limp on R due to decreased knee extension. Education on HEP. Active ROM of R knee in sitting (-2') to 120'; The goals were achieved, except 0' knee extension. Discharge PT. He is to continue with his HEP and progress activity at home as tolerated. Plan of Care PT Services Indicated No
== END 2024-06-19 12:44 | disposition home or self-care (01) ==
LOC: ANHPT 09:00
PROVIDERS: Visit Provider Specialist
DX: M17.11 Unilateral primary osteoarthritis, right knee (principal); R26.9 Unspecified abnormalities of gait and mobility; R53.1 Weakness; Z47.89 Encounter for other orthopedic aftercare; Z47.1 Aftercare following joint replacement surgery
CPT/HCPCS: 97016; 97110; 97140; 97161; 97530